=== PATIENT | male | born 1970 | race Caucasian/White ===

== ENCOUNTER 2016-12-20 10:01 | Emergency (ER) | payer OTHER ==
[~2016-12-20] VITALS: Ht 167.6 cm; Wt 140.0 kg
[2016-12-20 10:02] VITALS: TEMP 36.4; Ht 167.6 cm; Wt 140.0 kg
[2016-12-20 11:01] LABS: BASO % 0.2 %; BASO ABS # 0.01 K/uL (0-0.2); COMPLETE YES; EOS % 1.1 %; HEMATOCRIT 44.4 % (42-52); IG% 0.2 %; LYMPH % 39.4 %; LYMPH ABS # 2.52 K/uL (1.2-3.4); MEAN CELL VOLUME 85.2 fL (80-100); MEAN CORPUSCULAR HEMOGLOBIN 28.8 pg (25-34); MEAN CORPUSCULAR HGB CONC 33.8 g/dl (32-36); MEAN PLATELET VOLUME 9.6 fL (7.4-10.4); MONO % 8.4 %; NEUT % 50.7 %; PLATELET COUNT 240 K/uL (130-400); RED BLOOD COUNT 5.21 M/uL (4.7-6.1)
[2016-12-20 11:19] LABS: BLOOD UREA NITROGEN 11 mg/dl (7-18); BUN/CREATININE RATIO 12.2 (10-20); CALCIUM 8.9 mg/dl (8.5-10.1); CARBON DIOXIDE 29 mmol/L (21-32); CHLORIDE 104 mmol/L (98-107); CREATININE 0.91 mg/dl (0.60-1.40); GLUCOSE 105 mg/dl (70-99); POTASSIUM 3.9 mmol/L (3.5-5.1); SODIUM 139 mmol/L (136-145)
--- NOTE | 2016-12-20 11:21 | EMERGENCY ROOM VISIT NOTE ---
History First contact with patient: 10:08 Chief Complaint: CHEST PAIN Stated Complaint: CHEST PAIN, DIZZY Nursing Triage Summary: Chest pain for the past week. Has had a stressful week. SOB started this AM. History of HTN, "Sharon had it under control in the past." History of Present Illness The patient is a 46 year old male who presents to the Emergency Room with complaints o shortness of breath and chest discomfort. The patient states that this past week has been quite stressful. His cousin was recently and yesterday he was at his . States that there were some issues within the family that caused him some stress but states that they were resolved at the . After the he went back to his mother's place. Last night he was sitting watching TV and states he just started feeling "weird". Stressful and diaphoretic, as well as slightly lightheaded. He some chest discomfort. He describes the chest discomfort as a 2/10 pressure type pain just to the right of the sternum that he felt radiated to the right jaw and to the right arm. The pain did not radiate into the back. He is most concerned about his shortness of breath. He states that he feels some mild wheezing, but has not been coughing. The patient states that the pain lasted a few minutes, and seemed to improve when his mother started consoling him. The patient states that he was able to get to sleep last night. When he woke up this morning he states after he felt quite well. He got in the cartilage of his mother's house and go home. On his way home he started feeling some sense of diaphoresis as well as that "weird sensation" so decided to come to the emergency room for further evaluation. The only other complaint is some mild lower abdominal discomfort but this is long-standing for the past 2 months and is on increasing in severity. He denies any issues with urination or with his bowel movements. Appetite and intake have been within normal limits. He denies any fevers chills or night sweats. His only past history states is hypertension and mild asthma. He is meant to be on bystolic (nebivolol). States that he does not always take his medications as directed and has not taken them regularly for the past year. Previous history of asthma, he has not been given an inhaler, and usually does not need one. Review of Systems A 10 point review of systems was negative unless stated above. Past Medical/Surgical History Hypertension Mild intermittent asthma Social History Smoking Status: Never Smoker Smokeless Tobacco Use: No Alcohol Use: none Drug Use: none Marital Status: Housing Status: lives with family Occupation Status: employed ([employer]) Current/Historical Medications Scheduled Nebivolol Hcl (Bystolic), 0.5 TAB PO DAILY Allergies NKA Physical Exam Vital Signs Date Time Temp Pulse Resp B/P (MAP) Pulse Ox O2 Delivery O2 Flow Rate FiO2 12/20/16 13:57 72 20 138/89 96 12/20/16 11:47 88 16 147/93 98 Room Air 12/20/16 10:20 61 12/20/16 10:20 Room Air 12/20/16 10:02 36.4 70 20 185/92 98 Room Air Pain Rating (0-10): 2 Physical Exam Constitutional: Vital signs as above were reviewed. Hypertensive Eyes: Pupils equal, round, and reactive to light. Extraocular muscles are intact. No proptosis. No photophobia. ENT: Mucous membranes are moist. Oropharynx is clear. No sinus tenderness. Cardiovascular: Irregular heart rate. No pedal edema appreciated. Respiratory: Lungs clear to auscultation bilaterally. No wheezes, rales, or rhonchi appreciated. No accessory muscle use. No retractions. No increased work of breathing. GI: Abdomen soft, nontender, nondistended. Normal active bowel sounds. No abdominal hernias appreciated. No rebound. No guarding. : No CVA tenderness appreciated. Musculoskeletal: No midline cervical or vertebral tenderness. No gross deformities. No bony tenderness. No calf swelling or tenderness. No chest tenderness to palpation Integumentary: Warm, dry, no rashes appreciated. Neurological: Patient awake, alert, and oriented x 3. Motor 5 out of 5 strength bilateral upper and lower extremities. Lymph: No cervical lymphadenopathy appreciated. Medical Decision & Procedures ER Provider Diagnostic Interpretation: TWO VIEW CHEST CLINICAL HISTORY: Atypical chest pain. FINDINGS: PA and lateral chest radiographs are obtained. No prior studies are available for comparison at the time of dictation. The heart is top normal for projection. The mediastinal contour is within normal limits. There is mild elevation of the right hemidiaphragm. The lungs and pleural spaces are clear. There is no pneumothorax. The bony thorax appears intact. IMPRESSION: No active disease in the chest. Electronically signed by: Khadar Bunch M.D. 12/20/2016 11:33 AM Dictated Date/Time: 12/20/2016 11:32 AM The status of this report is Signed. Draft = Not yet reviewed or approved by Radiologist. Signed = Reviewed and approved by Radiologist. Laboratory Results 12/20/16 10:40 Red Blood Count 5.21, Mean Corpuscular Volume 85.2, Mean Corpuscular Hemoglobin 28.8, Mean Corpuscular Hemoglobin Concent 33.8, Mean Platelet Volume 9.6, Neutrophils (%) (Auto) 50.7, Lymphocytes (%) (Auto) 39.4, Monocytes (%) (Auto) 8.4, Eosinophils (%) (Auto) 1.1, Basophils (%) (Auto) 0.2, Neutrophils # (Auto) 3.25, Lymphocytes # (Auto) 2.52, Monocytes # (Auto) 0.54, Eosinophils # (Auto) 0.07, Basophils # (Auto) 0.01 12/20/16 10:40 Test 12/20/16 10:40 12/20/16 11:00 12/20/16 12:32 White Blood Count 6.40 K/uL (4.8-10.8) Red Blood Count 5.21 M/uL (4.7-6.1) Hemoglobin 15.0 g/dL (14.0-18.0) Hematocrit 44.4 % (42-52) Mean Corpuscular Volume 85.2 fL (80-100) Mean Corpuscular Hemoglobin 28.8 pg (25-34) Mean Corpuscular Hemoglobin Concent 33.8 g/dl (32-36) Platelet Count 240 K/uL (130-400) Mean Platelet Volume 9.6 fL (7.4-10.4) Neutrophils (%) (Auto) 50.7 % Lymphocytes (%) (Auto) 39.4 % Monocytes (%) (Auto) 8.4 % Eosinophils (%) (Auto) 1.1 % Basophils (%) (Auto) 0.2 % Neutrophils # (Auto) 3.25 K/uL (1.4-6.5) Lymphocytes # (Auto) 2.52 K/uL (1.2-3.4) Monocytes # (Auto) 0.54 K/uL (0.11-0.59) Eosinophils # (Auto) 0.07 K/uL (0-0.5) Basophils # (Auto) 0.01 K/uL (0-0.2) RDW Standard Deviation 40.7 fL (36.4-46.3) RDW Coefficient of Variation 13.0 % (11.5-14.5) Immature Granulocyte % (Auto) 0.2 % Immature Granulocyte # (Auto) 0.01 K/uL (0.00-0.02) Anion Gap 6.0 mmol/L (3-11) Est Creatinine Clear Calc Drug Dose 135.2 ml/min Estimated GFR () 116.7 Estimated GFR (Non- 100.7 BUN/Creatinine Ratio 12.2 (10-20) Calcium Level 8.9 mg/dl (8.5-10.1) Urine Color YELLOW Urine Appearance CLEAR (CLEAR) Urine pH 5.5 (4.5-7.5) Urine Specific [place] 1.015 (1.000-1.030) Urine Protein NEG (NEG) Urine Glucose (UA) NEG (NEG) Urine Ketones NEG (NEG) Urine Occult Blood TRACE (NEG) Urine Nitrite NEG (NEG) Urine Bilirubin NEG (NEG) Urine Urobilinogen NEG (NEG) Urine Leukocyte Esterase NEG (NEG) Urine WBC (Auto) 1-5 /hpf (0-5) Urine RBC (Auto) 0-4 /hpf (0-4) Urine Hyaline Casts (Auto) 0 /lpf (0-5) Urine Epithelial Cells (Auto) 0-5 /lpf (0-5) Urine Bacteria (Auto) NEG (NEG) Troponin I < 0.015 ng/ml (0-0.045) Medications Administered Medications (Trade) Dose Ordered Sig/Sai Route Start Time Stop Time Status Last Admin Dose Admin Aspirin (Aspirin Chew) 324 mg NOW STAT PO 12/20/16 11:28 12/20/16 11:29 DC 12/20/16 11:47 324 MG ECG Change: Sinus bradycardia with sinus arrhythmia Non-specific intra-ventricular conduction delay Borderline ECG No previous ECGs available Confirmed by RAFY HUNT ([id number]) on 12/20/2016 12:56:36 PM ED Course 10:40 - The patient was seen and evaluated by Dr. Ced Aguayo MD [address] 10:55 - Labs: CBC, BMP, Troponin, UA, EKG, Chest X-ray 2 view 13:35 - Reviewed troponin neg x 2 Discussed results with patient; strongly encouraged to see PCP this week and get referral for outpatient stress testing Patient agrees with plan 13:45 - Discharge paperwork completed; patient ready to be discharged Medical Decision This is a 46-year-old male with obesity, hypertension and a positive family history for cardiac disease who presents with sudden onset shortness of breath and chest pain. The patient's pain was reportedly more so on the right side which is atypical for pain from a cardiac origin, although it cannot be excluded. An EKG in the emergency room was negative for any acute ST or T-wave changes. The pain was chest pain-free in the emergency room. We did check basic lab panel including a CBC and a BMP as well as a troponin. The initial troponin was negative. In the setting of having risk factors for coronary disease, we felt it was appropriate to repeat the troponin at 90 minutes, and this was also negative. We have considered having the patient admitted for stress testing. However the patient did have a preference to go home and was insistent he would follow-up with his PCP within the week and getting referrals for cardiac stress testing. We were amenable as well to this plan and felt he was safe to be discharged home. Was given a short supply refills for his Bystolic. We've recommended that he reestablish with his primary care provider as he would require screening labs including a lipid panel as well as fasting glucose/HbA1c to help stratify his 10 -year cardiac risk. At the time of discharge the patient was feeling better. He was discharged in stable condition and given instructions on symptoms that should prompt immediate consultation with a provider or return to the emergency department. Head Trauma GCS Score: 15 Medication Reconcilliation Current Medication List: was personally reviewed by me Blood Pressure Screening Patient's blood pressure: Normal blood pressure Blood pressure disposition: Elevated BP felt to be situational, Referred to PCP Impression Primary Impression: Chest wall pain Departure Information Dispostion Home / Self-Care Condition GOOD Prescriptions Nebivolol Hcl (BYSTOLIC) 10 Mg Tab 0.5 TAB PO DAILY for 14 Days, #7 TAB 0 Refills Prov: Ced Aguayo MD 12/20/16 Referrals No Doctor, Assigned (PCP) Patient Instructions [facility] Additional Instructions You came to the emergency room for shortness of breath and chest discomfort. Your chest x-ray was fortunately normal. We did 2 sets of blood test to check for damage to the heart, and these were fortunately negative as well. You do have risk factors for heart disease which include high blood pressure, and chewing tobacco. These put you at a higher risk for having a heart attack. In the context of coming to the emergency room for chest discomfort and having his risk factors, we strongly encouraged you to see your family doctor this week and get a referral to have stress testing done. However, at this time you do not need to be admitted and can safely be discharged home. We will give you a small supply of your Bystolic at a low dose until you see your primary care provider. Your primary care provider will decide if the dose needs to be changed or whether additional medications need to be added on. They will also decide on any additional screening tests that she need for risk factor surveillance. If your symptoms fail to improve, acutely worsen, please seek medical attention immediately by either calling your primary care provider or going to your nearest emergency department. Otherwise, please see your primary care provider within 1 week to ensure that your symptoms continue to improve. It was a pleasure to be involved in your care and we wish you all the best.
[2016-12-20 11:22] LABS: URINE APPEARANCE CLEAR (CLEAR); URINE BILIRUBIN NEG (NEG); URINE COLOR YELLOW; URINE EPITHELIAL CELL AUTO 0-5 /lpf (0-5); URINE NITRITE NEG (NEG); URINE PH 5.5 (4.5-7.5); URINE SPECIFIC GRAVITY 1.015 (1.000-1.030); UROBILINOGEN NEG (NEG)
[2016-12-20] MEDS ORDERED: ASPIRIN 81 MG CHEW PO STA (11:28)
[2016-12-20 11:31] LABS: MANUAL MICROSCOPIC REQUIRED? NO; REVIEW REQ? NO
--- NOTE | 2016-12-20 11:34 | DIAGNOSTIC IMAGING REPORT ---
TWO VIEW CHEST CLINICAL HISTORY: Atypical chest pain. FINDINGS: PA and lateral chest radiographs are obtained. No prior studies are available for comparison at the time of dictation. The heart is top normal for projection. The mediastinal contour is within normal limits. There is mild elevation of the right hemidiaphragm. The lungs and pleural spaces are clear. There is no pneumothorax. The bony thorax appears intact. IMPRESSION: No active disease in the chest. Electronically signed by: Khadar Bunch M.D. 12/20/2016 11:33 AM Dictated Date/Time: 12/20/2016 11:32 AM
[2016-12-20] MEDS ORDERED: METOPROLOL TARTRATE 1 MG/ML VIAL IV STA (12:23)
[2016-12-20] MEDS ORDERED: NEBI10TA2 PO (13:37)
[2016-12-20 13:57] VITALS: BP 138/89; PULSE 72; O2SAT 96
--- NOTE | 2016-12-20 15:02 | EMERGENCY ROOM VISIT NOTE ---
ED Visit Note First contact with patient: 10:08 Resident Physician Supervision Note: I interviewed and examined the patient. Discussed with Dr. Aguayo and agree with findings and plan as documented in the note. Any exceptions or clarifications are listed here: [None] Patient had 2 consecutive negative troponins. EKG reveals no acute ischemic change. Chest x-ray is clear. I did discuss the option of observation stay for further cardiac testing with the patient. He declined in light of the negative testing. He prefers to be seen by his PCP for further cardiac evaluation. Dr. Aguayo provided a short prescription for the patient's antihypertensive medication as he has run out. He will follow-up with his PCP in short interval. He was advised to return to the ER for worsening of symptoms or any medical concerns. Documented By: Betsy Rodas
== END 2016-12-20 13:58 | disposition home or self-care (01) ==
LOC: C.EDB 10:03 → C.EDC 13:58
DX: R07.89 Other chest pain (principal); I10 Essential (primary) hypertension; J45.909 Unspecified asthma, uncomplicated